=== PATIENT | female | born 1940 | race Caucasian/White ===

== ENCOUNTER 2021-05-08 08:21 | Outpatient (CLI) | payer MEDICARE | END 2021-05-08 08:22 | disposition home or self-care (01) | LOC: CSHWCC 08:21 | PROVIDERS: ATTEND Nurse Practitioner Family | DX: I87.2 Venous insufficiency (chronic) (peripheral) (principal); I89.0 Lymphedema, not elsewhere classified; M12.571 Traumatic arthropathy, right ankle and foot; E03.9 Hypothyroidism, unspecified; R60.0 Localized edema ==

== ENCOUNTER 2022-05-05 09:40 | Day surgery (SDC) | payer MEDICARE ==
[2022-05-02 12:52] VITALS: BMI 24.3
[2022-05-05] MEDS ORDERED: PROPOFOL 20 ML ONE (11:22)
[2022-05-05] MEDS ORDERED: PROPOFOL 40 ML ONE (11:22)
[2022-05-05] MEDS ORDERED: Fentanyl 100 MCG/2 ML VIAL ONE (11:22)
[2022-05-05] MEDS ORDERED: Midazolam HCl 2 mg/2 ml Vial ONE (11:22)
[2022-05-05] MEDS ORDERED: Ondansetron PF 4 MG/2 ML Vial ONE (11:23)
[2022-05-05] MEDS ORDERED: Dexamethasone 20 MG/5 ML VIAL ONE (11:23)
[2022-05-05] MEDS ORDERED: Lidocaine 1% PF 5 ML VIAL ONE (11:23)
[2022-05-05] MEDS ORDERED: EPINEPHrine 1 MG/ML AMP ONE (11:52)
== END 2022-05-05 13:25 | disposition home or self-care (01) ==
LOC: CSHSDC 09:40
PROVIDERS: ATTEND Otolaryngology Plastic Surgery within the Head & Neck
PROC: 0CBS8ZX Excision of Larynx, Via Natural or Artificial Opening Endoscopic, Diagnostic (ICD-10-PCS; principal; 2022-05-05)
DX: C32.1 Malignant neoplasm of supraglottis (principal); E03.9 Hypothyroidism, unspecified; Z87.891 Personal history of nicotine dependence; Z79.899 Other long term (current) drug therapy; Z88.0 Allergy status to penicillin; Z88.8 Allergy status to other drugs, medicaments and biological substances
CPT/HCPCS: 88305; 88331; 88341; 88342; J0171; J1100; J2250; J2405; J2704; J3010

== ENCOUNTER 2023-12-21 10:41 | Outpatient (CLI) | payer MEDICARE | END 2023-12-21 10:42 | disposition home or self-care (01) | LOC: CSHMAMMO 10:41 | PROVIDERS: ATTEND Family Medicine | DX: Z78.0 Asymptomatic menopausal state (principal); M85.89 Other specified disorders of bone density and structure, multiple sites | CPT/HCPCS: 77080 ==